=== PATIENT | female | born 1945 | race Caucasian/White ===

== ENCOUNTER 2016-08-03 09:53 | Outpatient (CLI) | payer MEDICARE ==
[2016-08-03 10:32] LABS: ALT (SGPT) 14 U/L (0-55); AST (SGOT) 14 U/L (5-34); Albumin 4.4 g/dL (3.4-4.8); Alkaline Phosphatase 68 U/L (40-150); Anion Gap 17 mmol/L (10-20); BUN (Urea Nitrogen) 22 mg/dL (9.8-20.1); Bilirubin, Total 0.3 mg/dL (0.2-1.2); Calc. Creatinine Clearance 0 mL/min (70-130); Calcium 9.7 mg/dL (7.8-10.44); Carbon Dioxide 25 mmol/L (23-31); Cardiac Risk 7.7 (Less than 4.5); Chloride 102 mmol/L (98-107); Cholesterol 277 mg/dL (< 200 Desired); Estimated GFR-MDRD 48; Globulin 2.6 g/dL (2.4-3.5); Glucose 158 mg/dL (83-110); HDL Cholesterol 36 mg/dL (>60 Neg Risk); LDL Cholesterol, Calculated 182 mg/dL; Potassium 4.5 mmol/L (3.5-5.1); Sodium 139 mmol/L (136-145); Triglycerides 296 mg/dL (Less than 150)
[2016-08-03 10:48] LABS: Free T4 (Free Thyroxine) 1.29 ng/dL (0.70-1.48); Thyroid Stimulating Hormone 0.6928 uIU/mL (0.35-4.94)
[2016-08-03 17:04] LABS: Creatinine, Urine 75.39 mg/dL (47-110); Microalbumin Urine Less than 1.0 mg/dL (0.5-50.0); Microalbumin/Creat Ratio 13.3 mg/g (Less than 30)
== END 2016-08-03 09:54 | disposition home or self-care (01) ==
LOC: MADLAB 09:53
PROVIDERS: ATTEND Internal Medicine Endocrinology, Diabetes & Metabolism
DX: E78.5 Hyperlipidemia, unspecified (principal); E03.9 Hypothyroidism, unspecified; E11.49 Type 2 diabetes mellitus with other diabetic neurological complication; Z79.899 Other long term (current) drug therapy
CPT/HCPCS: 36415; 80053; 80061; 82043; 84439; 84443; 84481

== ENCOUNTER 2017-11-27 09:58 | Outpatient (CLI) | payer MEDICARE ==
--- NOTE | 2017-11-27 12:24 | ULT ---
ULTRASOUND GALLBLADDER RIGHT UPPER QUADRANT: Date: 11/27/17 HISTORY: Epigastric pain. TECHNIQUE: Real-time Hernandez scale and color evaluation of the right upper quadrant of the abdomen was performed. FINDINGS: The visualized portions of the pancreas are unremarkable. Right kidney measures 8.4 x 4.9 x 3.8 cm, w ithout mass, hydronephrosis, or abnormal calcifications. Sonographic Sorensen's sign is negative. The g allbladder wall thickness is normal. Common bile duct measures 2.0 mm. IMPRESSION: Normal exam. POS: BRYAN
== END 2017-11-27 09:59 | disposition home or self-care (01) ==
LOC: MADULT 09:58
DX: R10.13 Epigastric pain (principal)
CPT/HCPCS: 76705

== ENCOUNTER 2019-04-17 08:14 | Outpatient (CLI) | payer MEDICARE ==
[2019-04-17 10:49] LABS: ALT (SGPT) 10 U/L (8-55); AST (SGOT) 11 U/L (5-34); Albumin 4.4 g/dL (3.4-4.8); Alkaline Phosphatase 48 U/L (40-110); Anion Gap 15 mmol/L (10-20); BUN (Urea Nitrogen) 21 mg/dL (9.8-20.1); Bilirubin, Total 0.3 mg/dL (0.2-1.2); Calc. Creatinine Clearance 0 mL/min (70-130); Calcium 9.6 mg/dL (7.8-10.44); Carbon Dioxide 24 mmol/L (23-31); Cardiac Risk 6.7 (Less than 4.5); Chloride 103 mmol/L (98-107); Cholesterol 255 mg/dl (< 200 Desired); Estimated GFR-MDRD 55; Globulin 1.9 g/dL (2.4-3.5); Glucose 115 mg/dL (83-110); HDL Cholesterol 38 mg/dL (>60 Neg Risk); LDL Cholesterol, Calculated 182 mg/dL; Potassium 4.4 mmol/L (3.5-5.1); Protein, Total 6.3 g/dL (6.0-8.3); Sodium 138 mmol/L (136-145); Triglycerides 177 mg/dL (Less than 150)
[2019-04-17 11:27] LABS: Thyroid Stimulating Hormone 1.2862 uIU/mL (0.35-4.94)
[2019-04-17 18:06] LABS: Creatinine, Urine 45.25 mg/dL (47-110); Microalbumin Urine Less than 1.0 mg/dL (0.5-50.0)
[2019-04-17 18:21] LABS: Free T4 (Free Thyroxine) 1.25 ng/dL (0.70-1.48)
[2019-04-17 18:22] LABS: Vitamin D, 25 Hydroxy 39.8 ng/ml (> 30.0)
== END 2019-04-17 08:15 | disposition home or self-care (01) ==
LOC: MADLAB 08:14
PROVIDERS: ATTEND Internal Medicine
DX: E03.9 Hypothyroidism, unspecified (principal); E55.9 Vitamin D deficiency, unspecified; E11.49 Type 2 diabetes mellitus with other diabetic neurological complication; Z79.899 Other long term (current) drug therapy
CPT/HCPCS: 36415; 80053; 80061; 82043; 82306; 83036; 84439; 84443; 84481